=== PATIENT | male | born 1990 | race Caucasian/White ===

== ENCOUNTER 2023-07-04 08:43 | Day surgery (SDC) | payer BC, SELFPAY ==
[2023-07-04] VITALS (11 sets, daily range): BP systolic 133–168; BP diastolic 83–144; PULSE 76–111; RESP 16–22; TEMP 36.7–36.9; O2SAT 93–98; BMI 37.7
--- NOTE | 2023-07-04 08:45 | DI.US_ITS ---
Exam(s) US SCROTUM EXAM: US SCROTUM CLINICAL HISTORY: testicular pain. TECHNIQUE: Scrotal ultrasound performed using grayscale, color-flow and spectral Doppler analysis. COMPARISON: No exams were available for comparison FINDINGS: The patient was in severe pain during the examination. Could not perform Valsalva maneuver. RIGHT TESTICLE: 4.5 x 3.2 x 2.4 cm Echogenicity: Normal. Contour: Smooth. Mass: None seen. Microlithiasis: None. Hydrocele: None. Varicocele: None. Hernia: No peristalsing bowel loop identified. Epididymis: Normal. Scrotum: Normal. LEFT TESTICLE: 4.2 x by 3.0 x 3.0 cm Echogenicity: Normal. Contour: Smooth. Mass: None seen. Microlithiasis: None. Hydrocele: Small hydrocele. Varicocele: None. Hernia: Echogenic material extending superior to the left testicle consistent with mesenteric fat, in guinal scrotal hernia. Blood flow is identified within the mesenteric vessels. No peristalsing chapin l loop identified. Epididymis: Normal. Scrotum: Normal. DOPPLER: Color: Symmetric and uniform, no hyperemia. Duplex: Bilateral testicular arterial waveforms visualized. IMPRESSION: Normal appearing bilateral testicles. Findings consistent with a left fatty containing inguinal scrotal hernia. DATA REPOSITORY:
[2023-07-04 09:10] LABS: Abs Immature Grans 0.04 10^3/uL (0.0-0.06); Absolute Basophil Count 0.03 10^3/uL (0.0-0.2); Absolute Eosinophil Count 0.06 10^3/uL (0.0-0.7); Absolute Lymphocyte Count 2.61 10^3/uL (1.2-3.4); Absolute Monocyte Count 0.73 10^3/uL (0.1-0.8); Absolute Neutrophil Count 5.54 10^3/uL (1.2-6.7); Basophils % 0.3; Eosinophils % 0.7; HGB 16.9 g/dL (13.5-17.5); Immature Grans % 0.4; MCHC 34.5 % (32.0-36.0); MCV 78 fL (80-95); MPV 9.8 fL (8.0-11.0); Monocytes % 8.1; Neutrophils % 61.5; Platelet Count 254 10^3/uL (130-400); RBC 6.25 10^6/uL (4.36-5.78); RDW 11.9 % (11.8-14.1); RDW-SD 33.3 fL; WBC 9.01 10^3/uL (4.4-10.8)
[2023-07-04] MEDS: Ondansetron 4 MG/2 ML VIAL IVP (09:14)
[2023-07-04] MEDS: MORPHine 10 MG/ML VIAL 6 MG IVP (09:14)
[2023-07-04 09:17] LABS: INR 1.1 (0.9-1.1)
[2023-07-04 09:24] LABS: ALT 72 U/L (16-63); AST 30 U/L (15-37); Alkaline Phosphatase 77 U/L (46-116); Anion Gap 11.7 mmol/L (3-11); BUN 9 mg/dL (7-18); CO2 26.3 mmol/L (21.0-32.0); Calcium 9.7 mg/dL (8.5-10.1); Chloride 103 mmol/L (98-107); Estimated GFR 103.19 (mL/min/1.73m2); Glucose 99 mg/dL (74-106); Potassium 3.9 mmol/L (3.5-5.1); Sodium 141 mmol/L (136-145); Total Protein 8.7 g/dL (6.4-8.2)
[2023-07-04 09:34] LABS: Diff Comment Diff Reviewed; RBC Morphology Normal
[2023-07-04 09:36] LABS: Albumin 4.1 g/dL (3.4-5.0)
--- NOTE | 2023-07-04 10:03 | W.ED.GENAD ---
Discharge Plan Disposition Patient Disposition: Admit to [facility] Condition: Stable Discharge Details Clinical Impression: Left testicular pain, Inguinal hernia Primary Care Provider: Anupama Lugo ED Provider: Esther Valdivia Home Meds and New Rx's Prescriptions: No Action No Known Home Meds HPI General Date/Time Provider Initiated Documentation: 07/04/23 08:46. Limitations to Documentation: no limitations. Information obtained by: patient. HPI Narrative: 32-year-old gentleman without significant past medical history presents for evaluation testicular pain. Reports significant pain in the left testicle. Started yesterday. Has been constant since that time and not improving. He reports that today he became concerned because his testicle became discolored. A lot he localizes the pain to the left testicle. No burning with urination. Denies any trauma. Denies any abdominal pain. Related Data Home Medications Medication Instructions Recorded Confirmed Unknown [No Known Home Meds] 05/24/23 07/04/23 Allergies Allergy/AdvReac Type Severity Reaction Status Date / Time No Known Allergies Allergy Unverified 07/04/23 08:52 General Stated Complaint: Male Reproductive Problem [place]: 2 Exam Narrative Exam Narrative: Review of Systems: All systems reviewed & are unremarkable except as noted in HPI and below Well-developed, no acute distress NCAT PERRL, normal conjunctiva RRR Unlabored respiratory effort Nondistended abdomen , nontender Normal circumcised penis, right testicle nontender and descended, left testicle high riding firm erythematous in coloration Extremities w/o deformity, no cyanosis, no edema No rashes or lesions. no focal neurologic deficits Appropriate mood and affect Course Vital Signs Vital signs: Vital Signs Pulse 111 H 07/04/23 08:50 Respiratory Rate 07/04/23 08:50 Blood Pressure 166/144 H 07/04/23 08:50 Pulse Oximetry 97 07/04/23 08:50 Pulse 111 H 07/04/23 08:50 Respiratory Rate 20 07/04/23 08:50 Respiratory Effort Normal, Non-Labored 07/04/23 08:52 Blood Pressure 166/144 H 07/04/23 08:50 Blood Pressure Position Supine 07/04/23 08:50 Pulse Oximetry 97 07/04/23 08:50 Oxygen Delivery Method Room Air 07/04/23 08:50 Oxygen Flow Rate 0 07/04/23 08:50 Pain Level 7 07/04/23 08:50 Lab/Test Results Lab/Test Results: Laboratory Tests Range/Units 07/04/23 09:00 WBC (4.4-10.8) 10^3/uL 9.01 RBC (4.36-5.78) 10^6/uL 6.25 H Hgb (13.5-17.5) g/dL 16.9 Hct (40.0-50.0) % 49.0 MCV (80-95) fL 78 L MCH (27.0-33.0) pg 27.0 MCHC (32.0-36.0) % 34.5 RDW (11.8-14.1) % 11.9 Plt Count (130-400) 10^3/uL 254 MPV (8.0-11.0) fL 9.8 Immature Gran % 0.4 Neutrophils % 61.5 Lymphocytes % 29.0 Monocytes % 8.1 Eosinophils % 0.7 Basophils % 0.3 Nucleated RBC % (0.0-0.3) % 0.0 Absolute Neutrophils (1.2-6.7) 10^3/uL 5.54 Absolute Lymphocytes (1.2-3.4) 10^3/uL 2.61 Absolute Monocytes (0.1-0.8) 10^3/uL 0.73 Absolute Eosinophils (0.0-0.7) 10^3/uL 0.06 Absolute Basophils (0.0-0.2) 10^3/uL 0.03 RBC Morphology Normal PT (9.1-11.1) sec 11.0 INR (0.9-1.1) 1.1 Sodium (136-145) mmol/L 141 Potassium (3.5-5.1) mmol/L 3.9 Chloride (98-107) mmol/L 103 Carbon Dioxide (21.0-32.0) mmol/L 26.3 Anion Gap (3-11) mmol/L 11.7 H BUN (7-18) mg/dL 9 Creatinine (0.70-1.30) mg/dL 1.0 Est GFR (CKD-EPI 2020) (mL/min/1.73m2) 103.19 Glucose (74-106) mg/dL 99 Calcium (8.5-10.1) mg/dL 9.7 Total Bilirubin (0.2-1.0) mg/dL 1.0 AST (15-37) U/L 30 ALT (16-63) U/L 72 H Alkaline Phosphatase (46-116) U/L 77 Total Protein (6.4-8.2) g/dL 8.7 H Albumin (3.4-5.0) g/dL 4.1 Medical Decision Making Emergent evaluation of acute testicular pain. High suspicion for testicular torsion. Plan for urology consultation, emergent ultrasound and pain control. [address] Lerner, who evaluated patient in ED. US findings does demonstrate flow to the testicles, but also a hernia. clinically this doesn't seem to fit patient's presentation. [address] Nguyen, surgery, and discussed the patient's physical examination and findings. Recommends a CT scan to further evaluate. 1220: Discussed CT findings with general surgery as well as the radiologist. The surgeon will come to the emergency department for evaluation and likely admit the patient for hernia. Medical Records Medical records reviewed: Yes I reviewed the patient's medical records. Lab Data Lab results reviewed: Yes I reviewed the patient's lab results. Quality:SDOH Health Related Social Needs: No Data to Display PFSH All Active Problems (Updated 07/04/23 @ 12:24 by Esther Valdivia MD) Inguinal hernia (Acute) Left testicular pain (Acute) Social History Smoking/Tobacco Use Status: Former Tobacco Use Smoking risk assessment performed?: Yes Alcohol Intake: never Drug use: Never Do you feel safe at home: Yes Do you feel safe in your relationship?: Yes
[2023-07-04] MEDS: Normal Saline 1,000 ML 1000 ML IV (10:22)
[2023-07-04 10:46] LABS: Bilirubin Negative (Negative); Blood Negative (Negative); Clarity Clear (Clear); Glucose Negative (Negative); Ketones Negative (Negative); Leukocyte Esterase Negative (Negative); Nitrite Negative (Negative); Specific Gravity 1.025 (1.005-1.025); Urobilinogen 0.2 mg/dL (Up to 0.2); pH 5.5 (5-8)
--- NOTE | 2023-07-04 11:11 | DI.CT_ITS ---
Exam(s) CT PELVIC W EXAM: CT PELVIC W CLINICAL HISTORY: testicular pain. TECHNIQUE: Imaging Protocol: Axial computed tomography images with coronal and sagittal reformatted images were created and reviewed. CONTRAST MATERIAL: Intravenous: Omnipaque 350 Contrast volume:structured data in ml Contrast route:I V - Oral: no COMPARISON: No exams were available for comparison FINDINGS: Bladder: No gross wall thickening. No stones.No evidence of mass. Bowel: No obstruction or bowel wall thickening. Peritoneal cavity: No ascites, collection or mesenteric inflammatory response. Reproductive: Some scrotal skin thickening. Small left hydrocele. Prostate not enlarged. Bones: No acute findings. Soft tissues: Mesenteric fat and vessels seen extending into scrotal sac on the left, superior to the left testicle. Some increased stranding in this area. The vessels appear enlarged compared to the contralateral side.. Small amount of fat and vessels are seen extending into the right scrotal sac w ithout surrounding inflammation. IMPRESSION: Left scrotal hernia containing mesenteric fat. There is some prominence of the vasculature and strand ing which could indicate incarceration. Findings called to Dr. Valdivia of the emergency department. RADIATION DOSE DELIVERED: 994.88mGy.cm Total DLP DATA REPOSITORY: All CT scans at this facility are submitted to the National Radiology Data Registry (NRDR) Dose Index Registry (DIR) with the [employer] (ACR). RADIATION OPTIMIZATION: All CT scans at this facility use at least one of these dose optimization te chniques: automated exposure control; mA and/or kV adjustment per patient size (includes targeted exa ms where dose is matched to clinical indication); or iterative reconstruction.
[2023-07-04] MEDS: Normal Saline - Diluent 50 ML VIAL IJ ×2 (11:50→11:52)
[2023-07-04] MEDS: Omnipaque 350 MG/ML 500 ML BTL-Imaging package 100 ML IJ (11:51)
--- NOTE | 2023-07-04 13:03 | W.SURGCON ---
Date of service: 07/04/23 Time of Service: 13:03 Assessment and Plan Assessment and plan (1) Inguinal hernia: Status: Acute Assessment and plan: 32-year-old man with an incarcerated, probably strangulated left inguinal hernia. I suspect this is a small piece of omentum that is strangulated down within the scrotal sac and that is why there is so much tenderness down there. There is definitely no small bowel associated with it. The differential diagnosis definitely includes post?vasectomy pain syndrome which can present at any given time after a vasectomy. Considering the CT scan findings, I am optimistic this is not the case and that this is related to his fat?containing hernia. The patient is pretty uncomfortable whenever he moves or whenever examined show I think this needs to be dealt with today. He is otherwise completely hemodynamically stable. I talked with the patient about indications for surgery and repairing the hernia. We talked about the low but possible risk of chronic left groin discomfort and certainly the risk of chronic left scrotal discomfort if this is somehow related to a nerve being entrapped or twisted. I also talked with him directly about this possibly being related to the vasectomy and the reasons for the pain can be multifactorial in those cases and can be anything from venous engorgement to sperm granulomas. If this is related to the vasectomy, fixing his hernia will not provide relief. We also talked about the low risk of mesh infection and hernia recurrence over time. The patient is in agreement with the indications, the potential risks but also the likely benefits of surgery and wants to proceed. Overall plan: Laparoscopic left inguinal hernia repair History of Present Illness Narrative: 32-year-old man started having left scrotal pain that worsened throughout the night and is still constant today. He had a vasectomy performed just over 1 month ago and thought this might be related to that and so he came in to the ER for evaluation. In the ER an ultrasound was done which showed blood flow to the testicle and ruled out torsion. Urology saw him in consultation and felt like his pain might be related to a hernia. A CT scan was done which showed a left?sided inguinal hernia containing incarcerated fat, down to the level of the scrotum and associated inflammation in the scrotum itself. Intra-abdominal surgical history includes laparoscopic appendectomy when he was a kid. PFS All Active Problems (Updated 07/04/23 @ 12:24 by Esther Valdivia MD) Inguinal hernia (Acute) Left testicular pain (Acute) Social History Smoking/Tobacco Use Status: Former Tobacco Use Smoking risk assessment performed?: Yes Alcohol Intake: never Drug use: Never Do you feel safe at home: Yes Do you feel safe in your relationship?: Yes Exam Narrative Exam Narrative: General: Nontoxic, comfortable and interactive Neuro: Alert and oriented x 3 Psych: Good mood and affect, good insight and understanding into his condition Chest: Nonlabored breathing Heart: Regular Abdomen: Soft, nondistended and nontender. Well-healed surgical sites. Left groin: The left?sided inguinal canal is mildly tender but otherwise soft. The left hemiscrotum is carefully examined and is extremely tender but also somewhat soft. Results Last Vital Signs Pulse 93 H 07/04/23 10:12 Resp 18 07/04/23 10:12 BP 133/90 07/04/23 10:12 Pulse Ox 98 07/04/23 10:12 Labs 07/04/23 09:00 07/04/23 09:00 Labs: Laboratory Results - last 24 hr 07/04/23 07/04/23 09:00 10:29 WBC 9.01 RBC 6.25 H Hgb 16.9 Hct 49.0 MCV 78 L MCH 27.0 MCHC 34.5 RDW 11.9 Plt Count 254 MPV 9.8 Immature Gran % 0.4 Neutrophils % 61.5 Lymphocytes % 29.0 Monocytes % 8.1 Eosinophils % 0.7 Basophils % 0.3 Nucleated RBC % 0.0 Absolute Neutrophils 5.54 Absolute Lymphocytes 2.61 Absolute Monocytes 0.73 Absolute Eosinophils 0.06 Absolute Basophils 0.03 RBC Morphology Normal PT 11.0 INR 1.1 Sodium 141 Potassium 3.9 Chloride 103 Carbon Dioxide 26.3 Anion Gap 11.7 H BUN 9 Creatinine 1.0 Est GFR (CKD-EPI 2020) 103.19 Glucose 99 Calcium 9.7 Total Bilirubin 1.0 AST 30 ALT 72 H Alkaline Phosphatase 77 Total Protein 8.7 H Albumin 4.1 Urine Color Yellow Urine Clarity Clear Urine pH 5.5 Ur Specific [place] 1.025 Urine Protein Negative Urine Ketones Negative Urine Blood Negative Urine Nitrite Negative Urine Bilirubin Negative Urine Urobilinogen 0.2 Ur Leukocyte Esterase Negative Urine Glucose Negative
--- NOTE | 2023-07-04 13:11 | ANES.PREOP_ITS ---
General Info Date of Service Date Performed: 07/04/23 Height: 6 ft 4 in Weight: 140.614 kg Body Mass Index (BMI): 37.7 Surgical Procedure: Operation Date: 07/04/23 14:55 Proposed Procedure Side Surgeon p Hernia Inguinal Laparoscopic Left Isidro Nguyen MD Meds Allergies and Home Medications Allergies Allergy/AdvReac Type Severity Reaction Status Date / Time No Known Allergies Allergy Unverified 07/04/23 08:52 Home Medication Medication Instructions Recorded Unknown [No Known Home Meds] 05/24/23 Current Visit Medications: Current Medications Generic Name Dose Route Start Last Admin Trade Name Freq PRN Reason Stop Dose Admin IV Miscellaneous Supplies 1 each 07/04/23 09:00 Iv Access-Emergency Dept IV DIRECTED TATY Iohexol 100 ml 07/04/23 12:00 07/04/23 11:51 Omnipaque 350 Mg/Ml 500 Ml Btl-Imaging Package IJ 08/03/23 23:59 100 ml DIRECTED TATY Administration Sodium Chloride 0 ml 07/04/23 08:51 Normal Saline Flush 10 Ml Syr IVP PRN PRN Sodium Chloride 0 ml 07/04/23 20:00 Normal Saline Flush 10 Ml Syr IVP BID TATY Sodium Chloride 0 ml 07/04/23 08:51 Normal Saline 10 Ml Vial IJ DIRECTED PRN Sodium Chloride 50 ml 07/04/23 12:00 07/04/23 11:52 Normal Saline - Diluent 50 Ml Vial IJ 50 ml .FOR DI USE TATY Administration PFSH Active Problems Active Problems: Problem Status Onset Code Inguinal hernia K40.90 Left testicular pain N50.812 Tobacco Smoking/Tobacco Use Status: Former Tobacco Use Alcohol Alcohol Intake: never Substance Use Substance use: Never Vital Signs and Lab Results Vital Signs Most Recent Vital Signs in EMR: Most Recent Vital Signs Pulse Resp BP Pulse Ox 93 H 18 133/90 98 07/04/23 10:12 07/04/23 10:12 07/04/23 10:12 07/04/23 10:12 Lab Results 07/04/23 09:00 07/04/23 09:00 Blood Type / Crossmatch: 2 No Data to Display Complete Blood Count: 2 White Blood Count 9.01 10^3/uL (4.4-10.8) 07/04/23 09:00 Red Blood Count 6.25 10^6/uL (4.36-5.78) H 07/04/23 09:00 Hemoglobin 16.9 g/dL (13.5-17.5) 07/04/23 09:00 Hematocrit 49.0 % (40.0-50.0) 07/04/23 09:00 Platelet Count 254 10^3/uL (130-400) 07/04/23 09:00 Complete Metabolic Panel: 2 Sodium 141 mmol/L (136-145) 07/04/23 09:00 Potassium 3.9 mmol/L (3.5-5.1) 07/04/23 09:00 Chloride 103 mmol/L (98-107) 07/04/23 09:00 Carbon Dioxide 26.3 mmol/L (21.0-32.0) 07/04/23 09:00 BUN 9 mg/dL (7-18) 07/04/23 09:00 Creatinine 1.0 mg/dL (0.70-1.30) 07/04/23 09:00 Est GFR (CKD-EPI 2020) 103.19 (mL/min/1.73m2) 07/04/23 09:00 Calcium 9.7 mg/dL (8.5-10.1) 07/04/23 09:00 Albumin 4.1 g/dL (3.4-5.0) 07/04/23 09:00 Glucose 99 mg/dL (74-106) 07/04/23 09:00 Liver Function Panel: 2 Alanine Aminotransferase (ALT/SGPT) 72 U/L (16-63) H 07/04/23 0 9:00 Aspartate Amino Transf (AST/SGOT) 30 U/L (15-37) 07/04/23 09:00 Coagulation Panel: 2 INR International Normalized Ratio 1.1 (0.9-1.1) 07/04/23 09:0 0 Prothrombin Time 11.0 sec (9.1-11.1) 07/04/23 09:00 Cardiac Panel: 2 No Data to Display Arterial Blood Gas: 2 No Data to Display Venous Blood Gas: 2 No Data to Display Pancreas Panel: 2 No Data to Display Thyroid Panel: 2 No Data to Display Infectious Disease: 2 No Data to Display Blood Cultures: 2 No Data to Display Toxicology Panel: 2 No Data to Display Anesthesia Assessment and Plan Anesthesia History Personal History: Awareness Under Anesthesia Family History: No Family History of Anesthesia Complications Exercise Tolerance Exercise Tolerance: Metabolic Equivalents>4 Pertinent Negatives Pertinent Negatives: No Symptoms of GERD, No Major Cardiovascular Symptoms or Complaints and No Major Pulmonary Symptoms or Complaints Cardiac & Pulmonary Exam Cardiac Exam: Normal S1/S2 Heart Sounds Pulmonary Exam: Clear Bilateral Breath Sounds Implantable Cardiac Device Does patient have a Pacemaker or an ICD?: No Airway Exam Known Difficult Airway: No Mallampati Class: 1 Mouth Opening: Normal (> 3cm) Thyromental Distance: Greater than 3 cm Facial Hair: Full [place] Neck Range of Motion: Full ROM Neck Circumference: Normal Teeth Condition: Normal Dentition ASA Classification ASA Score: ASA 1 Emergency Case?: Yes NPO Status NPO Status: NPO Clears >2 hours, Solids >8 hours Anesthesia Plan Resuscitation Status: Full Code Anesthesia Technique: General Anesthesia Airway Planned: Endotracheal Tube Monitors Used: Standard Monitors
[2023-07-04] MEDS: Lactated Ringers 1,000 ML 80 ML IV (14:30)
[2023-07-04] MEDS: Heparin 5,000 UNITS/ML VIAL 5000 UNITS (16:25)
[2023-07-04] MEDS: Lidocaine 1% Pres-Free 30 ML VIAL (16:45)
--- NOTE | 2023-07-04 16:55 | PERITONEUM_PTH ---
PATIENT: Cash Goetz JR LOC: [facility] U#:[id number] AGE/SX: 32/M ROOM: RE07/04/[address]: Isidro Nguyen : 1990 BED: DIS: 07/04/2023 SPEC #: [id number] RECD: 07/04/23 18:27 STATUS: ETHAN RE #: [id number] HEDY: 07/04/23 16:[address]: Isidro Nguyen DEPT: Surgical Specimen RECD BY: Leyla Hou ENTERED: 07/04/23 18:28 SP TYPE: PERITONEUM OTHR DR: Anupama Lugo Tissues: 1 - PERITONEUM/FREDRICK BIOPSY Procedures: GROSS AND MICRO LEVEL 4 SPECIAL STAIN 1 Comments: [id number]
[2023-07-04] MEDS: HYDROmorphone 2 MG/ML SYR IVP ×2 (17:45→17:55)
--- NOTE | 2023-07-04 18:06 | ROE_ITS ---
Date of service: 07/04/23 Time of Service: 05:30 Operative Note Operative Note Refer to Anesthesia Record Procedure Description: Procedure: Diagnostic laparoscopy Preoperative Diagnosis: Strangulated left inguinal hernia Postoperative Diagnosis: Spermatic cord inflammation Surgeon: Magdalena Nguyen Assist: None Anesthesia: General Anesthesiologist: Alicia Indication: Patient presented with acute and worsening left scrotal pain and swelling. Cross-sectional imaging (CT scan) showed a fat-containing left inguinal hernia with fat in the scrotum and it was notably swollen consistent with incarceration/strangulation. The patient did have a vasectomy within the last 45 days. Findings: No inguinal hernia defects left, or right. No femoral defects. On the patient's left side is noted unusual adhesion disease that appeared acutely inflamed. Epiploic fat from the sigmoid colon is stuck against the peritoneum lining at the level of the vas deferens/and overlying the region/area of the left seminal vesicle. I divided the adhesions which actually revealed a small amount of pus being expressed. This was cultured and some of this tissue was also sent for biopsy purposes. Complications: None Estimated Blood Loss: Minimal Specimens removed: No Grafts or implants: None Procedure in detail: Written consent was obtained from the patient who was in agreement with the risks, benefits and indications for the procedure. The patient was taken to the operating suite and laid supine on the operating table with arms outstretched. General anesthesia was administered which was tolerated very well. We tucked the right arm. Next we prepped and draped the abdomen, inguinal region and testicles in sterile fashion. A timeout was performed. When we were all in agreement we began the procedure. Local anesthetic was injected. A small stab incision was made at the umbilicus. An optiview trocar was used to enter under direct visualization. Two more more ports were placed in the lateral locations under visualization. The patient was placed in Trendelenburg and I inspected the pelvis laparoscopically. In the left lower quadrant there was a completely normal wall. There was no indirect inguinal hernia. There is no direct inguinal hernia. There is no femoral hernia. I looked on the right and that was also normal. What was readily and instantly oppressive was a piece of epiploic fat from the sigmoid colon that was stuck against the lower left pelvic sidewall. I had a very unusual appearance to it and looked inflamed. When I palpated it was very firm consistent with ongoing inflammation. I divided it with the LigaSure and upon further dissection, pus was yielded from this adhesion. I sent some of the tissue edge of biopsy and then cultured the other portion of it. Because there was no hernia, it was obvious at this time that the etiology of the scrotal discomfort is not related to a hernia. Considering the intraperitoneal, ipsilateral findings overlying the seminal vesicle and vas deferens, it seems obvious to me that cord inflammation was the underlying problem here and this is some now extending down into the scrotum - presumably via spermatic cord transmission. I took pictures. I verified the specimens and cultures have been placed on the back table. The needles were removed from the abdomen. The 12mm trocar site was closed with vicryl thru the fascia. The ports were removed under visualization and were hemostatic. The skin incisions were closed with Monocryl and I placed Dermabond over top of the wounds. The testicles were present in the scrotum bilaterally after the pr ocedure. I again verified that the left hemiscrotum was soft and nondistended which it still remained. The left?sided spermatic cord feels thickened and more prominent compared to the right, and it has a firmness in addition to the enlargement that is palpable. The sponge, instrument and sharps count was correct x3 at the end of the procedure. The patient tolerated the procedure well and was taken to the PACU in hemodynamically stable condition. I did reach out to and discussed this with Dr. Egan, urologist, during the procedure and relayed my findings. He recommended initiating antibiotics and having the patient follow-up with him in the office.
--- NOTE | 2023-07-04 18:10 | W.PM.DSUDISC ---
Date of service: 07/04/23 Time of Service: 18:10 Discharge Plan Disposition Patient Disposition: Home Condition: Stable Discharge Details Reason For Visit: HERNIA Attending Provider: Isidro Nguyen Primary Care Provider: Anupama Lugo Home Meds and New Rx's Prescriptions: New levofloxacin 750 mg tablet 750 mg PO DAILY Qty: 14 0RF No Action No Known Home Meds Discharge Instructions Additional Instructions: Incisions: Keep clean and dry but they do not need to be covered. It is okay to shower but no tub bathing for 1 week. You can peel the glue off after 1 week. Activity: As tolerated. There are no restrictions. Return to work, as tolerated in the next few days. If you need a work note call the surgery office. Diet: Regular diet as tolerated Medications: Resume all of your usual/regular home medications Follow-up: Follow-up with Dr. Lerner next week. Call tomorrow and schedule an appointment. Pain control: Take Tylenol, 1000 mg, every 6 hours on a schedule for the next 3 days. You can use ibuprofen in addition to Tylenol and use the narcotic medication only as necessary for pain preventing you from sleeping. Overall: Symptoms should not be worsening. If you have any difficulty breathing or you have return of symptoms of brought you to the hospital or your pain is otherwise worsening each day and you should call Dr. Lerner. Activity:: Activity as Tolerated Diet:: As Tolerated DS: Diagnosis Discharge Diagnosis (1) Inguinal hernia: Status: Acute Asessment and Plan: Patient found, on diagnostic laparoscopy, to not have any hernia. Inflammation was seen overlying the vas deferens/seminal vesicle region. Case discussed with Dr. Lerner urology. Patient will follow-up with urology. I initiated antibiotics today.
--- NOTE | 2023-07-04 18:14 | W.ANESPOSTOP ---
Postoperative Evaluation Date, Time and Location Date Performed: 07/04/23 Time Performed: 18:15 Patient Location: Day Surgery Unit Vital Signs Most Recent Imported Vital Signs: Most Recent Vital Signs Temp Pulse Resp BP Pulse Ox 36.7 C 79 16 139/88 94 07/04/23 18:11 07/04/23 18:11 07/04/23 18:11 07/04/23 18:11 07/04/23 18:11 Pain Score Most Recent Pain Score: Most Recent Pain Score Pain Level 6 07/04/23 18:11 Assessment Mental Status: Awake (Alert & Oriented to Patient Baseline) Airway and Respiratory Function: Patent airway with normal (patient baseline) respiratory exam Cardiovascular Function: Hemodynamically Stable Hydration Status: Adequately Hydrated Nausea & Vomiting: No Nausea or Vomiting Pain: Pain is Moderate or Severe Postoperative Pain Management: Pain being addressed with medication Peripheral Nerve Block: Patient did not receive a nerve block
[2023-07-04] MEDS: HYDROmorphone 4 MG TAB PO (18:24)
[2023-07-04] MEDS: levoFLOXacin 500 MG TAB PO (18:24)
== END 2023-07-04 18:50 | disposition home or self-care (01) ==
LOC: ER 12:44 → SUR 14:50
PROVIDERS: Emergency Provider Emergency Medicine; PCP Nurse Practitioner Family; Visit Provider Student in an Organized Health Care Education/Training Program
PROC: (CPT 49650; principal; 2023-07-04 14:45)
DX: N49.1 Inflammatory disorders of spermatic cord, tunica vaginalis and vas deferens (principal); K66.0 Peritoneal adhesions (postprocedural) (postinfection)
CPT/HCPCS: 49321; 00123; 80053; 88305; 72193; 76870; 81003; 85025; 85610; 87070; 87075; 87205; 88312; J1100; J1170; J1644; J1885; J2270; J2405; J2704; J3010